=== PATIENT | female | born 1955 | race Caucasian/White ===

== ENCOUNTER → 2021-04-30 | Outpatient (CLI) | payer OTHER, BC | LOC: SJCVCIMAG 07:04 | PROVIDERS: ATTEND Nuclear Medicine Nuclear Cardiology | DX: I83.008 Varicose veins of unspecified lower extremity with ulcer other part of lower leg (principal); L97.809 Non-pressure chronic ulcer of other part of unspecified lower leg with unspecified severity; M79.89 Other specified soft tissue disorders; M79.605 Pain in left leg; M79.604 Pain in right leg; E11.9 Type 2 diabetes mellitus without complications; I10 Essential (primary) hypertension; G47.33 Obstructive sleep apnea (adult) (pediatric); Z88.8 Allergy status to other drugs, medicaments and biological substances; Z79.4 Long term (current) use of insulin; Z79.899 Other long term (current) drug therapy ==